=== PATIENT | female | born 1995 | race Caucasian/White ===

== ENCOUNTER → 2017-08-22 | Outpatient (REF) | payer BC ==
[~2017-08-22] MED LIST: CETI10CA8 PO; RANI-366 PO
== END ==
PROVIDERS: ATTEND Nurse Practitioner Family
DX: R10.9 Unspecified abdominal pain (principal); B37.3 Candidiasis of vulva and vagina; N94.10 Unspecified dyspareunia
CPT/HCPCS: 87210